=== PATIENT | female | born 1960 | race African-American/Black ===

== ENCOUNTER 2025-02-28 05:35 | Day surgery (SDC) | payer OTHER ==
[2025-02-21 17:06] VITALS: BMI 35.3
[2025-02-28] MEDS: LIDOCAINE HCL 1%, 10 MG/ML (20ML VIAL) INF ONE
[2025-02-28] MEDS ORDERED: LIDOCAINE HCL 1%, 10 MG/ML (20ML VIAL) ONE ×2 (07:37→13:24)
[2025-02-28] MEDS ORDERED: ISOSULFAN BLUE 50 MG/5 ML VIAL SQ ONE ×2 (07:37→13:24)
[2025-02-28] MEDS ORDERED: oxyCODONE HCL 5 MG TABLET PO PRN (13:39)
[2025-02-28] MEDS ORDERED: ONDANSETRON 4 MG/2 ML VIAL IVPUSH PRN (13:39)
[2025-02-28] MEDS ORDERED: LACTATED RINGERS SOLUTION 1,000 ML IV SCH (13:45)
[2025-02-28] MEDS: ceFAZolin SODIUM 1 GM VIAL IVPB ONE ×2 (13:53)
[2025-02-28] MEDS ORDERED: PROPOFOL 20 ML ONE (15:44)
[2025-02-28] MEDS ORDERED: metFORMIN HCL 500 MG TABLET (FP) PO SCH (16:30)
[2025-02-28 17:16] VITALS: RESP 18
[2025-02-28 17:43] VITALS: BP 156/91; PULSE 85; TEMP 97.5
[2025-02-28] MEDS ORDERED: ATORVASTATIN CA 40 MG TABLET (FP) PO SCH (22:00)
[2025-03-01] MEDS ORDERED: amLODIPine BESYLATE 5 MG TABLET (FP) PO SCH (10:00)
== END 2025-02-28 19:15 | disposition home or self-care (01) ==
LOC: JASU-SURG 05:35
PROVIDERS: ATTEND Surgery
PROC: 0HBU0ZZ Excision of Left Breast, Open Approach (ICD-10-PCS; principal; 2025-02-28 11:30)
DX: C50.912 Malignant neoplasm of unspecified site of left female breast (principal)
CPT/HCPCS: 76098-TC-FY; 78195-TC; 82962; 88307-TC; 88342-TC; 94760; A9541